=== PATIENT | female | born 1990 | race Caucasian/White ===

== ENCOUNTER 2017-03-31 11:19 | Outpatient (CLI) | payer OTHER ==
[~2017-03-31] VITALS: Ht 175.3 cm; Wt 73.4 kg
[2017-03-31] MEDS ORDERED: PAMELOR 10MG10 MG PO (12:28)
[2017-03-31] MEDS ORDERED: BIRTH CONTROL PO (12:30)
[2017-03-31] MEDS ORDERED: SYNTHROID0.175 MG PO (12:31)
[2017-03-31 12:34] VITALS: BP 117/73; PULSE 89; TEMP 98.2
[2017-03-31 14:30] VITALS: BP 114/74; PULSE 98; TEMP 98.4
== END 2017-03-31 15:01 | disposition home or self-care (01) ==
LOC: COL.RAD 11:19
DX: R06.00 Dyspnea, unspecified (principal); R00.2 Palpitations